=== PATIENT | female | born 1985 | race Caucasian/White ===

== ENCOUNTER 2022-02-18 17:29 | Emergency (ER) | payer OTHER, SELFPAY ==
--- NOTE | ~2022-02-18 | XR_ITS ---
EXAMINATION: XR chest 2V Exam Date/Time: 02/18/2022 19:41 [employer] HISTORY: cough FOR 3 DAYS WITH SOB Comparison: None available. RESULT: Lines, tubes, and devices: None. Lungs and pleura: Mild diffuse reticulonodular opacities. Cardiomediastinal silhouette: Stable. Other: No acute osseous or upper abdominal finding. IMPRESSION: Pulmonary opacities may represent mild bronchiolitis, as can be seen with atypical infection, asthma, aspiration, and small airways disease. Reviewed, dictated and finalized at location [facility] IMPRESSION: Pulmonary opacities may represent mild bronchiolitis, as can be seen with atypi sy infection, asthma, aspiration, and small airways disease.
[2022-02-18 17:33] VITALS: BP 141/83; PULSE 107; RESP 20; TEMP 36.8; O2SAT 100
[2022-02-18 18:16] LABS: Influenza A QL RT-PCR Negative (Negative); Influenza B QL RT-PCR Negative (Negative); SARS-CoV-2 RNA PCR Negative
--- NOTE | 2022-02-18 19:43 | ED.URI ---
HPI - URI/Sore Throat General Chief Complaint: Upper Respiratory Infection <Leanna Larkin PA-C - Last Filed: 02/18/22 21:36> Stated Complaint: cough <LARISA Dominguez Last Filed: 02/18/22 21:36> Time Seen by Provider: 02/18/22 19:23 <LARISA Dominguez Last Filed: 02/18/22 21:36> Source: patient <LARISA Dominguez Last Filed: 02/18/22 21:36> Mode of arrival: ambulatory <LARISA Dominguez Last Filed: 02/18/22 21:36> Limitations: no limitations <LARISA Dominguez Last Filed: 02/18/22 21:36> History of Present Illness HPI Narrative: This is a 36-year-old female that presents to the emergency department for cold symptoms ongoing over the last week. Reports she caught a viral infection from her child. Reports she has continued to have a cough and congestion. It is making her feel a little winded with exertion. Denies fever, chest pain, or lower extremity edema. <LARISA Dominguez Last Filed: 02/18/22 21:36> Related Data Allergies/Adverse Reactions: Allergies Allergy/AdvReac Type Severity Reaction Status Date / Time No Known Allergies Allergy Unverified 04/06/16 06:09 <LARISA Dominguez Last Filed: 02/18/22 21:36> Review of Systems Review of Systems: CONSTITUTIONAL: Denies fever ENT: Reports congestion CARDIOVASCULAR: Denies chest pain or edema. RESPIRATORY: Reports cough and dyspnea. GASTROINTESTINAL: Denies abdominal pain, nausea, vomiting GENITOURINARY: Denies dysuria SKIN: Denies rash <LARISA Dominguez Last Filed: 02/18/22 21:36> All systems reviewed & are unremarkable except as noted in HPI and below <LARISA Dominguez Last Filed: 02/18/22 21:36> [facility] Past Medical History Medical History: Medical History (Updated 02/19/22 @ 00:00 by Background Daemon) No active medical problems <Leanna Larkin PA-C - Last Filed: 02/18/22 21:36> Surgical History Surgical History: Surgical History (Updated 02/18/22 @ 19:46 by Leanna Larkin PA-C) History of <Leanna Larkin PA-C - Last Filed: 02/18/22 21:36> Social History Social History: Social History (Updated 02/18/22 @ 19:46 by Leanna Larkin PA-C) Smoking status: Never smoker Alcohol intake: current Substance use: never <Leanna Larkin PA-C - Last Filed: 02/18/22 21:36> Exam Narrative: GENERAL: Well-appearing, well-nourished, and in no acute distress. HEAD: Normocephalic, atraumatic. EYES: EOMI. ENT: Nares clear, no rhinorrhea or epistaxis. Mucous membranes moist. Oropharynx without tonsillar hypertrophy exudate or other lesions. Bilateral TMs pearly oneal non-bulging NECK: Supple. No adenopathy or masses. CHEST: Clear to auscultation. No respiratory distress. No wheezes rales or rhonchi HEART: Regular rate and rhythm. No murmur heard. Normal peripheral pulses. EXTREMITIES: Normal range of motion. No edema. SKIN: Warm, dry, no rash. NEURO: No focal deficits. Alert and oriented x3. PSYCH: Normal mood and affect <Leanna Larkin PA-C - Last Filed: 02/18/22 21:36> Course DEPARTMENT STORE SALESPERSON/PA Physician Supervision For this patient encounter, I reviewed the DEPARTMENT STORE SALESPERSON or PA documentation, treatment plan, and medical decision making. <Neena Askew MD - Last Filed: 03/06/22 14:18> Vital Signs Vital signs: Vital Signs Temperature 98.3 F 02/18/22 17:33 Pulse Rate 107 H 02/18/22 17:33 Respiratory Rate 20 02/18/22 17:33 Blood Pressure 141/83 H 02/18/22 17:33 Pulse Oximetry 100 02/18/22 17:33 Oxygen Delivery Room Air 02/18/22 17:33 Temperature 98.3 F 02/18/22 17:33 Pulse Rate 89 02/18/22 21:52 Respiratory Rate 18 02/18/22 21:52 Blood Pressure 146/72 H 02/18/22 21:52 Pulse Oximetry 98 02/18/22 21:52 Oxygen Delivery Room Air 02/18/22 21:51 <Leanna Larkin PA-C - Last Filed: 02/18/22 21:36> Vital Signs Temperature 98.3 F 02/18/22 17:33 Pulse Rate 107 H
[2022-02-18] MEDS: ALBUTEROL SULFATE (*SP) AEROSOL 1 PUFF 2 PUFF INHALATION (20:04)
[2022-02-18 20:09] LABS: Basophils Absolute Auto 0.1 K/mm3 (0.0-0.1); Basophils Percent Auto 0.7 % (0.2-1.2); Eosinophils Absolute Auto 0.3 K/mm3 (0-0.3); Eosinophils Percent Auto 2.3 % (0-4.4); Hematocrit 42.4 % (37.0-47.0); Hemoglobin 14.3 g/dL (12.0-15.0); Immature Granulocyte Absolute 0.06 K/mm3 (0.00-0.031); Immature Granulocyte Percent A 0.5 % (0-0.5); Lymphocytes Absolute Auto 2.33 K/mm3 (0.9-3.2); Lymphocytes Percent Auto 20.4 % (18.3-44.2); Mean Corpuscular HGB Conc 33.7 g/dl (32-36); Mean Corpuscular Volume 91.8 fl (80-100); Mean Platelet Volume 9.3 fl (7.4-10.4); Monocytes Absolute Auto 0.8 K/mm3 (0.1-0.6); Monocytes Percent Auto 6.7 % (2.6-8.5); Neutrophils Absolute Auto 7.9 K/mm3 (1.3-6.7); Neutrophils Percent Auto 69.4 % (45.5-73.1); Platelet Count Result 357 k/mm3 (150-375); Red Blood Count 4.62 M/mm3 (4.2-5.4); Red Cell Distribution Width 12.3 % (11.5-14.5); White Blood Count 11.4 K/mm3 (4.5-10.0)
[2022-02-18 20:19] LABS: Anion Gap 14 mmol/L (8-16); Blood Urea Nitrogen 13 mg/dL (7-17); Carbon Dioxide 24 mmol/L (22-30); Chloride 103 mmol/L (98-107); Estimated CRCL calculation 104 ml/min; Estimated Glomerular Filt Rate > 60; Glucose 107 mg/dL (65-110); Potassium 3.8 mmol/L (3.4-5.0); Sodium 141 mmol/L (137-145)
[2022-02-18 20:20] LABS: INR 1.1; Prothrombin Time 13.9 Seconds (11.1-14.7)
[2022-02-18 20:21] LABS: Partial Thromboplastin Time 26.4 SECONDS (22.3-36.8)
[2022-02-18 20:35] LABS: D Dimer 0.41 ug/mL (<0.48)
[2022-02-18 21:51] VITALS: O2SAT 98
[2022-02-18 21:52] VITALS: BP 146/72; PULSE 89; RESP 18; O2SAT 98
== END 2022-02-18 21:53 | disposition home or self-care (01) ==
PROVIDERS: Physician Assistant; Emergency Provider Emergency Medicine
DX: J18.9 Pneumonia, unspecified organism (principal); Z20.822 Contact with and (suspected) exposure to COVID-19
CPT/HCPCS: 36415; 71046; 80048; 85025; 85380; 85610; 85730; 87502; 99283; A9270; U0003; U0005